=== PATIENT | male | born 1980 | race Caucasian/White ===

== ENCOUNTER 2024-07-20 06:22 | Emergency (ER) | payer BC ==
[~2024-07-20] VITALS: Ht 182.9 cm; Wt 86.2 kg
[2024-07-20 06:36] VITALS: O2SAT 97
[2024-07-20] MEDS ORDERED: NEOMY/BACITRA/POLYMYXIN B OINT UD PACKET TP ONE (07:36)
[2024-07-20] MEDS: NEOMY/BACITRA/POLYMYXIN B OINT UD PACKET TP ONE (07:49)
[2024-07-20] MEDS ORDERED: IBUP-1957 PO (08:13)
[2024-07-20] MEDS ORDERED: HYDR-3972 PO (08:13)
[2024-07-20] MEDS ORDERED: HYDROCODONE/APAP 5-325MG TABLET ONE (08:18)
[2024-07-20] MEDS: HYDROCODONE/APAP 5-325MG TABLET PO ONE (08:20)
== END 2024-07-20 08:23 | disposition home or self-care (01) ==
LOC: ER 06:23
DX: S60.00XA Contusion of unspecified finger without damage to nail, initial encounter (principal); S30.0XXA Contusion of lower back and pelvis, initial encounter; M70.21 Olecranon bursitis, right elbow; F17.200 Nicotine dependence, unspecified, uncomplicated; Z79.1 Long term (current) use of non-steroidal anti-inflammatories (NSAID); Z79.891 Long term (current) use of opiate analgesic; Y04.8XXA Assault by other bodily force, initial encounter; Y93.89 Activity, other specified; Y92.89 Other specified places as the place of occurrence of the external cause; Y99.8 Other external cause status
CPT/HCPCS: 72170; 73070; 73120; A4606; A4663

== ENCOUNTER 2024-10-18 10:58 | Emergency (ER) | payer BC ==
[~2024-10-18] VITALS: Ht 182.9 cm; Wt 92.1 kg
[~2024-10-18 10:58] MED LIST: HYDR-3972 PO; IBUP-1957 PO
[2024-10-18] MEDS ORDERED: TDAP DIPH,PERTUSS,TET VAC/PF 0.5 ML DISP.SYRIN IM ONE (11:58)
[2024-10-18] MEDS: TDAP DIPH,PERTUSS,TET VAC/PF 0.5 ML DISP.SYRIN IM ONE (12:02)
[2024-10-18] MEDS: AMOXICILLIN-CLAVUL 875-125MG TABLET PO ONE (12:03)
[2024-10-18] MEDS ORDERED: AMOXICILLIN-CLAVUL 875-125MG TABLET ONE (12:03)
[2024-10-18] MEDS ORDERED: AMOX-430 PO (12:06)
[2024-10-18 12:07] VITALS: BP 135/61; O2SAT 98
== END 2024-10-18 12:08 | disposition home or self-care (01) ==
LOC: ER 10:58
DX: S71.131A Puncture wound without foreign body, right thigh, initial encounter (principal); F17.210 Nicotine dependence, cigarettes, uncomplicated; Z79.899 Other long term (current) drug therapy; W54.0XXA Bitten by dog, initial encounter; Y93.89 Activity, other specified; Y92.89 Other specified places as the place of occurrence of the external cause; Y99.8 Other external cause status
CPT/HCPCS: 90715; A4606; A4663